=== PATIENT | male | born 1965 | race Caucasian/White ===

== ENCOUNTER 2019-10-15 23:41 | Emergency (ER) | payer OTHER ==
[~2019-10-15] VITALS: Ht 177.8 cm; Wt 90.7 kg
[~2019-10-15 23:41] MED LIST: ALBU2.5V5 INH; ALBU90OI INH; AZIT250 PO; FLUO10 PO; FLUTICASONE-SA1 EAC1 INH; GABA100 PO; LITH300C PO; PRED20 PO; QUET25 PO; TRAM50 PO
== END 2019-10-16 02:08 | disposition home or self-care (01) ==
LOC: ER 23:41
DX: R51 Headache (principal); E03.9 Hypothyroidism, unspecified; K21.9 Gastro-esophageal reflux disease without esophagitis; Z79.899 Other long term (current) drug therapy
CPT/HCPCS: 36415; 93005; 93010; 96374; 96375; 99284-25; J1100; J1200; J2765; J3010

== ENCOUNTER 2021-04-18 18:00 | Observation (INO) | payer OTHER ==
[~2021-04-18] VITALS: Ht 177.8 cm; Wt 95.0 kg
[2021-04-18 18:30] LABS: BASOPHILS ABSOLUTE AUTO 0.06 K/mm3 (0.00-0.23); BASOPHILS PERCENT AUTO 1 % (0-2); EOSINOPHILS ABSOLUTE AUTO 0.03 K/mm3 (0.00-0.68); EOSINOPHILS PERCENT AUTO 0 % (0-6); Hematocrit 51.2 % (37.0-53.0); Hemoglobin 17.1 g/dL (13.5-17.5); IMMATURE GRAN ABSOLUTE AUTO 0.03 K/mm3 (0.00-0.10); IMMATURE GRAN PERCENT AUTO 0 % (0-1); LYMPHOCYTES ABSOLUTE AUTO 1.18 K/mm3 (0.84-5.20); LYMPHOCYTES PERCENT AUTO 13 % (21-46); MONOCYTES PERCENT AUTO 7 % (4-13); Mean Corpuscular HGB 29.8 pg (26.0-34.0); Mean Corpuscular HGB Conc 33.4 g/dL (31.5-36.5); Mean Corpuscular Volume 89 fL (80-100); Mean Platelet Volume 10.6 fL (9.1-12.4); NEUTROPHILS ABSOLUTE AUTO 7.25 K/mm3 (1.96-9.15); NEUTROPHILS PERCENT AUTO 79 % (41-73); Platelet Count 190 K/mm3 (150-400); RDW Coefficient Variation 13.8 % (11.7-14.2); RDW Standard Deviation 45.4 fL (35.1-46.3); Red Blood Cell Count 5.73 M/mm3 (4.30-5.90); White Blood Cell Count 9.15 K/mm3 (4.00-11.30)
[2021-04-18 18:51] LABS: Alanine Aminotransfer (ALT/SGP 25 U/L (12-78); Albumin, Blood 4.1 g/dL (3.4-5.0); Alk Phos 101 U/L (50-136); Anion Gap 5 mmol/L (6-16); Aspartate Aminotrans (AST/SGOT 18 U/L (12-37); Bilirubin, Total 1.1 mg/dL (0.1-1.0); Blood Urea Nitrogen 13 mg/dL (8-24); Bun/Creatinine Ratio 13.2 (12.0-20.0); CO2, Blood 29 mmol/L (21-32); Calcium, Blood 10.4 mg/dL (8.5-10.1); Chloride, Blood 103 mmol/L (98-108); Creatinine, Blood 0.98 mg/dL (0.60-1.20); Globulin, Blood 4.1 g/dL (2.2-4.0); Glomerular Filtration Rate >60 (60-); Glucose, Blood 93 mg/dL (70-99); Potassium, Blood 4.3 mmol/L (3.5-5.5); Sodium, Blood 137 mmol/L (136-145); Total Protein, Blood 8.2 g/dL (6.4-8.2)
[2021-04-18 23:48] LABS: Source, Urine Clean Catch
[2021-04-18] MEDS ORDERED: QUET200 PO (23:51)
[2021-04-18] MEDS ORDERED: GABA100 PO (23:51)
[2021-04-18 23:52] LABS: Bilirubin, Urine Neg (Neg); Blood, Urine Neg (Neg); Glucose Qualitative, Urine Neg (Neg); Ketones, Urine 2+ (Neg); Leukocyte Esterase, Urine Neg (Neg); Nitrite, Urine Neg (Neg); Protein, Urine Neg (Neg); Specific Gravity, Urine 1.015 (1.003-1.022); Urobilinogen, Urine NORM (Normal)
[2021-04-19 00:01] LABS: Amorphous Heavy (0-Heavy); Appearance, Urine Hazy (Clear); Bacteria Rare /hpf; Color, Urine Yellow (P-Yellow); Mucus Light (0-Heavy); Red Blood Cells, Urine Not Seen /hpf (0-2); Squamous Epithelial Cells Not Seen /hpf (Few); White Blood Cells, Urine Rare /hpf (0-5)
[2021-04-19] MEDS ORDERED: TRAZ100 PO (01:52)
--- NOTE | 2021-04-19 02:42 | NUR ---
PT ER ADMIT FOR GOVIND. PT A/O, VSS. PT REP ABD PAIN/N/V X3 DAYS. ABD TENDER, PT REP PAINFUL W/PALP, BT ACTIVE. PT DENIES CP/PRESSURE. PT STATES HE WANTS TO BE DNR STATUS. PT EDUCATED ON DIFFERENCE BETWEEN DNR AND FULL CODE, PT STATES "JUST LET ME GO" CALL PALCED TO HOSPITALIST FOR ORDERS. EKG DONE PER PRE SURGERY PROTOCOL.
--- NOTE | 2021-04-19 02:53 | NUR ---
DR DE NOTIFIED OF PT'S WISHES TO BE DNR STATUS. NEW ORDER REC TO CHANGE CODE STATUS TO DNR. WILL PLACE PURPLE BAND
[2021-04-19 04:24] LABS: BASOPHILS ABSOLUTE AUTO 0.06 K/mm3 (0.00-0.23); BASOPHILS PERCENT AUTO 1 % (0-2); EOSINOPHILS ABSOLUTE AUTO 0.03 K/mm3 (0.00-0.68); EOSINOPHILS PERCENT AUTO 0 % (0-6); Hematocrit 47.8 % (37.0-53.0); Hemoglobin 15.8 g/dL (13.5-17.5); IMMATURE GRAN ABSOLUTE AUTO 0.04 K/mm3 (0.00-0.10); IMMATURE GRAN PERCENT AUTO 0 % (0-1); LYMPHOCYTES ABSOLUTE AUTO 1.49 K/mm3 (0.84-5.20); LYMPHOCYTES PERCENT AUTO 14 % (21-46); MONOCYTES PERCENT AUTO 8 % (4-13); Mean Corpuscular HGB 29.7 pg (26.0-34.0); Mean Corpuscular HGB Conc 33.1 g/dL (31.5-36.5); Mean Corpuscular Volume 90 fL (80-100); Mean Platelet Volume 10.6 fL (9.1-12.4); NEUTROPHILS ABSOLUTE AUTO 8.19 K/mm3 (1.96-9.15); NEUTROPHILS PERCENT AUTO 77 % (41-73); Platelet Count 169 K/mm3 (150-400); RDW Coefficient Variation 13.7 % (11.7-14.2); RDW Standard Deviation 45.6 fL (35.1-46.3); Red Blood Cell Count 5.32 M/mm3 (4.30-5.90); White Blood Cell Count 10.61 K/mm3 (4.00-11.30)
[2021-04-19 04:31] LABS: SARS-Cov-2 (COVID-19) PCR, MMC NEGATIVE (NEGATIVE)
[2021-04-19 04:44] LABS: Alanine Aminotransfer (ALT/SGP 24 U/L (12-78); Albumin, Blood 3.7 g/dL (3.4-5.0); Alk Phos 88 U/L (50-136); Anion Gap 3 mmol/L (6-16); Aspartate Aminotrans (AST/SGOT 14 U/L (12-37); Bilirubin, Total 1.2 mg/dL (0.1-1.0); Blood Urea Nitrogen 15 mg/dL (8-24); Bun/Creatinine Ratio 16.2 (12.0-20.0); CO2, Blood 29 mmol/L (21-32); Calcium, Blood 9.2 mg/dL (8.5-10.1); Chloride, Blood 104 mmol/L (98-108); Creatinine, Blood 0.93 mg/dL (0.60-1.20); Globulin, Blood 3.7 g/dL (2.2-4.0); Glomerular Filtration Rate >60 (60-); Glucose, Blood 87 mg/dL (70-99); Potassium, Blood 4.1 mmol/L (3.5-5.5); Sodium, Blood 136 mmol/L (136-145); Total Protein, Blood 7.4 g/dL (6.4-8.2)
--- NOTE | 2021-04-19 06:00 | NUR ---
PT VSS, PT REQ PT TAKE CPAP OFF, 3LO2 NC IN [address] WHILE SLEEPING, SATS >90%. PT MED FOR PAIN AND [place] X1 W/REP RELIEF. PT HAS BEEN NPO SINCE ARRIVING TO FLOOR, IVF CONT PER ORDERS. AWAITING SURGICAL CONSULT.
[2021-04-19 07:09] LABS: Lithium <0.20 mmol/L (0.60-1.20)
--- NOTE | 2021-04-19 10:35 | NUR ---
DR. MÉNDEZ AT BEDSIDE. DAY SURGERY TO OVERAGE SHORTAGE AND DAMAGE CLERK PATIENT AT THIS TIME.
--- NOTE | 2021-04-19 12:37 | NUR ---
04/19/21 1237 Helder Vines PATIENT ON SCHEDULED ANTIBIOTICS
--- NOTE | 2021-04-19 13:45 | NUR ---
REPORT TO MANDY OCHOA TO ASSUME CARE. PT STILL IN OR.
--- NOTE | 2021-04-20 04:47 | NUR ---
SHIFT SUMMARY POD1 ACUTE GOVIND WITH 2 LAP SITES IN ABD IN [place], [facility]. PT HAS SOME BRUISING IN HIS UMBILICAL REGION/SURGICAL SITE. PT TOLERATING REG DIET, DENIES NAUSEA AND VOMITING. PT HAD REQUESTED SOME SNACK IN THE MIDDLE OF THE NIGHT X2. PT DENIES PASSING FLATUS. REPORTS PAIN ON R SIDE AND BACK. PAIN MANAGED WITH 2 TAB NORCO TWICE AND FENTANYL 25MCG ONCE T/O SHIFT. PT FELT CLAUSTROPHOBIC AT THE BEGINNING OF SHIFT FEELING DISTRESS, SO THE VICE PRESIDENT OF RECRUITING WHEELED HIM OUT TO GET SOME AIR. HE FELT BETTER AFTER. VSS. HE IS A W/C BOUND AT BASELINE. REFUSED TO USE HIS CPAP MACHINE AT NIGHT, BUT HE WAS ON 3L N/C. CALL LIGHT WITHIN REACH. WILL PROVIDE REPORT TO ONCOMING NURSE.
[2021-04-20 04:56] LABS: Hematocrit 43.1 % (37.0-53.0); Hemoglobin 14.3 g/dL (13.5-17.5); Mean Corpuscular HGB 29.9 pg (26.0-34.0); Mean Corpuscular HGB Conc 33.2 g/dL (31.5-36.5); Mean Corpuscular Volume 90 fL (80-100); Mean Platelet Volume 10.7 fL (9.1-12.4); Platelet Count 149 K/mm3 (150-400); RDW Coefficient Variation 13.2 % (11.7-14.2); RDW Standard Deviation 43.8 fL (35.1-46.3); Red Blood Cell Count 4.78 M/mm3 (4.30-5.90); White Blood Cell Count 12.27 K/mm3 (4.00-11.30)
[2021-04-20 05:17] LABS: Alanine Aminotransfer (ALT/SGP 32 U/L (12-78); Albumin, Blood 3.2 g/dL (3.4-5.0); Alk Phos 77 U/L (50-136); Anion Gap 4 mmol/L (6-16); Aspartate Aminotrans (AST/SGOT 21 U/L (12-37); Bilirubin, Total 0.6 mg/dL (0.1-1.0); Blood Urea Nitrogen 17 mg/dL (8-24); Bun/Creatinine Ratio 18.9 (12.0-20.0); CO2, Blood 29 mmol/L (21-32); Calcium, Blood 8.8 mg/dL (8.5-10.1); Chloride, Blood 104 mmol/L (98-108); Globulin, Blood 3.1 g/dL (2.2-4.0); Glomerular Filtration Rate >60 (60-); Glucose, Blood 158 mg/dL (70-99); Potassium, Blood 4.4 mmol/L (3.5-5.5); Sodium, Blood 137 mmol/L (136-145); Total Protein, Blood 6.3 g/dL (6.4-8.2)
[2021-04-20] MEDS ORDERED: Norco 5-325 Ta1 EACH PO (13:06)
--- NOTE | 2021-04-20 14:27 | NUR ---
DISCHARGE SUMMARY PT A&OX4, VSS, LEFT FLOOR VIA WC WITH MANAGER HAIR, TO GO HOME, WITH FRIEND, WITH ALL PERSONAL POSSESSIONS INCLUDING DC PACKET AND 1 NARC SCRIPT. DC INSTRUCTIONS PROVIDED. PT REP UNDERSTANDING DC INSTRUCTIONS INCLUDING FU WITH SURGEON 2 WKS, LEAVE STERIS IN PLACE, OK TO SHOWER. IV DC'D.
--- NOTE | 2021-04-22 18:44 | NUR ---
LATE ENTRY SHIFT SUMMARY FOR 04/19/21 PT WAS IN THE OR MOST OF AFTERNOON, S/P LAP GOVIND, VSS, DENIED ANY NEED FOR PAIN MEDS, TOLERATED REGULAR DIET WELL, ABD LAP INCISIONS C/D/I, LS CLEAR, HRR, REPORT GIVEN TO SEB LORD RN.
== END 2021-04-20 14:00 | disposition home or self-care (01) ==
LOC: ER 18:00 → SURS 18:01
PROVIDERS: Internal Medicine; Physician Assistant; Surgery; ADMIT Internal Medicine
PROC: BF10YZZ Fluoroscopy of Bile Ducts using Other Contrast (ICD-10-PCS; principal; 2021-04-19 10:45)
PROC: 0FT44ZZ Resection of Gallbladder, Percutaneous Endoscopic Approach (ICD-10-PCS; principal; 2021-04-19 10:45)
DX: K80.00 Calculus of gallbladder with acute cholecystitis without obstruction (principal); G47.33 Obstructive sleep apnea (adult) (pediatric); J45.909 Unspecified asthma, uncomplicated; Z20.822 Contact with and (suspected) exposure to COVID-19; E03.9 Hypothyroidism, unspecified; K21.9 Gastro-esophageal reflux disease without esophagitis; I25.2 Old myocardial infarction; F25.9 Schizoaffective disorder, unspecified; F17.210 Nicotine dependence, cigarettes, uncomplicated; Z86.59 Personal history of other mental and behavioral disorders; Z66 Do not resuscitate
CPT/HCPCS: 36415; 74300; 76705; 80053; 80178; 81001; 83690; 85025; 85027; 88304; 93005; 93010; 94660; 94762; 96361; 96365; 96367; 96375; 96376; 99285-25; A9270; C1729; G0378; J0696; J1100; J1885; J2270; J2405; J2704; J2710; J3010; J7030; J7120; U0004

== ENCOUNTER 2022-01-24 18:31 | Emergency (ER) | payer OTHER ==
[~2022-01-24] VITALS: Ht 177.8 cm; Wt 95.2 kg
[~2022-01-24 18:31] MED LIST changes: +DICY20 PO; +MIRALAX17 GM PO; +Norco 5-325 Ta1 EACH PO; +QUET200 PO; +SIME40L PO; +TRAZ100 PO
[2022-01-24 18:59] LABS: BASOPHILS ABSOLUTE AUTO 0.09 K/mm3 (0.00-0.23); BASOPHILS PERCENT AUTO 1 % (0-2); EOSINOPHILS PERCENT AUTO 1 % (0-6); Hematocrit 54.2 % (37.0-53.0); Hemoglobin 17.6 g/dL (13.5-17.5); IMMATURE GRAN ABSOLUTE AUTO 0.05 K/mm3 (0.00-0.10); IMMATURE GRAN PERCENT AUTO 1 % (0-1); LYMPHOCYTES ABSOLUTE AUTO 0.94 K/mm3 (0.84-5.20); LYMPHOCYTES PERCENT AUTO 10 % (21-46); MONOCYTES ABSOLUTE AUTO 0.58 K/mm3 (0.16-1.47); MONOCYTES PERCENT AUTO 6 % (4-13); Mean Corpuscular HGB 29.3 pg (26.0-34.0); Mean Corpuscular HGB Conc 32.5 g/dL (31.5-36.5); Mean Corpuscular Volume 90 fL (80-100); Mean Platelet Volume 10.3 fL (9.1-12.4); NEUTROPHILS ABSOLUTE AUTO 7.79 K/mm3 (1.96-9.15); NEUTROPHILS PERCENT AUTO 82 % (41-73); Platelet Count 181 K/mm3 (150-400); RDW Coefficient Variation 14.8 % (11.7-14.2); RDW Standard Deviation 49.1 fL (35.1-46.3); Red Blood Cell Count 6.01 M/mm3 (4.30-5.90); White Blood Cell Count 9.55 K/mm3 (4.00-11.30)
[2022-01-24 19:26] LABS: Alanine Aminotransfer (ALT/SGP 21 U/L (12-78); Alk Phos 108 U/L (50-136); Anion Gap 2 mmol/L (6-16); Aspartate Aminotrans (AST/SGOT 15 U/L (12-37); Bilirubin, Total 0.8 mg/dL (0.1-1.0); Blood Urea Nitrogen 8 mg/dL (8-24); Bun/Creatinine Ratio 8.2 (12.0-20.0); CO2, Blood 29 mmol/L (21-32); Chloride, Blood 107 mmol/L (98-108); Creatinine, Blood 0.98 mg/dL (0.60-1.20); Globulin, Blood 4.1 g/dL (2.2-4.0); Glomerular Filtration Rate >60 (60-); Glucose, Blood 91 mg/dL (70-99); Potassium, Blood 4.3 mmol/L (3.5-5.5); Sodium, Blood 138 mmol/L (136-145); Total Protein, Blood 8.1 g/dL (6.4-8.2)
[2022-01-25] MEDS ORDERED: ONDA4ODT SL (00:51)
[2022-01-25] MEDS ORDERED: Pepcid40 MG PO (00:51)
== END 2022-01-25 01:37 | disposition home or self-care (01) ==
LOC: ER 18:31
PROVIDERS: Physician Assistant
DX: R10.13 Epigastric pain (principal); J44.9 Chronic obstructive pulmonary disease, unspecified; D75.1 Secondary polycythemia; F17.210 Nicotine dependence, cigarettes, uncomplicated; I25.2 Old myocardial infarction; Z79.899 Other long term (current) drug therapy; Z79.891 Long term (current) use of opiate analgesic
CPT/HCPCS: 36415; 80053; 83690; 84484; 85025; 86850; 86900; 86901; 93005; 93010; 96374; 99284-25; A9270

== ENCOUNTER 2022-05-20 19:02 | Emergency (ER) | payer OTHER ==
[~2022-05-20] VITALS: Ht 177.8 cm; Wt 97.5 kg
[~2022-05-20 19:02] MED LIST changes: +ONDA4ODT SL; +Pepcid40 MG PO
== END 2022-05-20 21:51 | disposition home or self-care (01) ==
LOC: ER 19:02
DX: R60.0 Localized edema (principal); E03.9 Hypothyroidism, unspecified; K21.9 Gastro-esophageal reflux disease without esophagitis; J44.9 Chronic obstructive pulmonary disease, unspecified; G47.33 Obstructive sleep apnea (adult) (pediatric); I25.2 Old myocardial infarction; Z79.899 Other long term (current) drug therapy
CPT/HCPCS: 93971